=== PATIENT | female | born 1980 | race Caucasian/White ===

== ENCOUNTER 2018-03-05 13:08 | Emergency (ER) | payer BC, OTHER ==
[2018-03-05] MEDS ORDERED: NA CHLORIDE 0.9% 1,000 ML ONE (13:31)
[2018-03-05] MEDS ORDERED: ONDANSETRON 4 MG/2 ML VIAL ONE (13:56)
[2018-03-05 13:57] LABS: Absolute Lymphocytes (CBC) 0.6 K/uL (0.7-4.9); Absolute Monocytes 0.5 K/uL (0.1-1.3); Basophils % 0.2 % (0-1.3); Eosinophils % 0.2 % (0-4.4); Hematocrit 45.1 % (36.0-45.0); Lymphocytes % 4.5 % (15.3-44.8); MCH 29.7 pg (27.0-35.0); MCV 87.8 fL (80-100); MPV 8.1 fL (7.6-11.3); Monocytes % 3.3 % (3.3-12.3); RBC Red Blood Cell Count 5.13 M/uL (3.86-4.86)
[2018-03-05 14:03] LABS: Bilirubin Direct 0.1 mg/dL (0-0.2); Bilirubin Total 0.6 mg/dL (0.2-1.0); Potassium 3.6 mmol/L (3.5-5.1); Protein, Total 8.2 g/dL (6.4-8.2)
[2018-03-05 14:21] LABS: Urine Blood NEGATIVE (NEG); Urine Glucose NEGATIVE (NEG); Urine Protein NEGATIVE (NEG); Urine Specific Gravity 1.025 (1.005-1.030); Urine pH 5.5 (5.0-7.0)
[2018-03-05 14:26] LABS: Blood Morphology Comment NOT SEEN (NOT SEEN); Platelet Estimate ADEQ; Urine White Blood Cell Casts OK
--- NOTE | 2018-03-05 14:49 | RAD REPORT ---
EXAM DESCRIPTION: CT - Abdomen Pelvis W Contrast - 03/05/2018 2:28 pm CLINICAL HISTORY: Abdominal pain, nausea, vomiting and diarrhea COMPARISON: None. TECHNIQUE: Biphasic, helical CT imaging of the abdomen and pelvis was performed following 100 ml non -ionic IV contrast. Oral contrast was given. All CT scans are performed using dose optimization technique as appropriate and may include automated exposure control or mA/KV adjustment according to patient size. FINDINGS: No suspicious findings in the lung bases. The liver, spleen, and pancreas show no suspicious findings. Gallbladder and biliary tree are also wi thout suspicious finding. Symmetric renal function is seen with no hydronephrosis or suspicious renal mass. No gastric dilatation or wall thickening. Small bowel loops are not dilated. Multiple small bowel loo ps do show a mild prominence of the wall thickness. This is most likely a nonspecific enteritis. No a cute colon process. Appendicitis is not suspected. No free air, free fluid or inflammatory stranding . No hernia, mass or bulky lymphadenopathy. The urinary bladder is without significant finding. No a drenal abnormality. A 3.5 centimeter right ovarian cyst is present. No other ovarian or adnexal findi ng. No uterine abnormality. No suspicious bony findings. IMPRESSION: Nonspecific small bowel enteritis pattern.
--- NOTE | 2018-03-05 15:03 | EDPHYS ---
Physician Documentation [facility] Name: Glory Son Age: 37 yrs Sex: Female : 1980 Arrival Date: 03/05/2018 Time: 13:12 Bed 23 Private MD: Bret Newton ED Physician Willis Simno HPI: 03/05 13:28 This 37 yrs old Female presents to ER via Ambulatory with complaints of kb Nausea/Vomiting/Diarrhea. 13:28 The patient presents to the emergency department with nausea, diarrhea. Onset: The kb symptoms/episode began/occurred 2 day(s) ago. Possible causes: unknown. The symptoms are aggravated by nothing. The symptoms are alleviated by nothing. Associated signs and symptoms: Pertinent positives: diarrhea, nausea, vomiting. Severity of symptoms: At their worst the symptoms were moderate in the emergency department the symptoms are unchanged. The patient has not experienced similar symptoms in the past. The patient has not recently seen a physician. 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 - Social history:: Smoking status: Patient/guardian denies using tobacco. - Ebola Screening: : Patient negative for fever greater than or equal to 101.5 degrees Fahrenheit, and additional compatible Ebola Virus Disease symptoms Patient denies exposure to infectious person Patient denies travel to an Ebola-affected area in the 21 days before illness onset No symptoms or risks identified at this time. ROS: 13:27 Constitutional: Negative for fever, chills, and weight loss, Cardiovascular: Negative kb for chest pain, palpitations, and edema, Respiratory: Negative for shortness of breath, cough, wheezing, and pleuritic chest pain, Back: Negative for injury and pain, MS/Extremity: Negative for injury and deformity, Skin: Negative for injury, rash, and discoloration, Neuro: Negative for headache, weakness, numbness, tingling, and seizure. 13:27 Abdomen/GI: Positive for abdominal pain, nausea, diarrhea, Negative for vomiting. Exam: 13:27 Constitutional: This is a well developed, well nourished patient who is awake, alert, kb and in no acute distress. Head/Face: Normocephalic, atraumatic. Chest/axilla: Normal chest wall appearance and motion. Nontender with no deformity. No lesions are appreciated. Cardiovascular: Regular rate and rhythm with a normal S1 and S2. No gallops, murmurs, or rubs. Normal PMI, no JVD. No pulse deficits. Respiratory: Lungs have equal breath sounds bilaterally, clear to auscultation and percussion. No rales, rhonchi or wheezes noted. No increased work of breathing, no retractions or nasal flaring. Abdomen/GI: Soft, non-tender, with normal bowel sounds. No distension or tympany. No guarding or rebound. No evidence of tenderness throughout. Skin: Warm, dry with normal turgor. Normal color with no rashes, no lesions, and no evidence of cellulitis. MS/ Extremity: Pulses equal, no cyanosis. Neurovascular intact. Full, normal range of motion. Neuro: Awake and alert, GCS 15, oriented to person, place, time, and situation. Cranial nerves II-XII grossly intact. Motor strength 5/5 in all extremities. Sensory grossly intact. Cerebellar exam normal. Normal gait. Vital Signs: 13:19 BP 125 / 94; Pulse 119; Resp 19; Temp 98.4; Pulse Ox 99% on R/A; Weight 99.79 kg; aj Height 5 ft. 7 in. (170.18 cm); 13:25 BP 116 / 82 Supine; Pulse 119; Resp 18; Pulse Ox 97% on R/A; tl3 13:25 BP 127 / 83 Sitting; Pulse 120; Resp 20; Pulse Ox 97% on R/A; tl3 13:25 BP 117 / 85; Pulse 130; Resp 20; Pulse Ox 97% on R/A; tl3 14:41 BP 105 / 61; Pulse 103; Resp 18; Pulse Ox 98% on R/A; tl3 13:19 Body Mass Index 34.46 (99.79 kg, 170.18 cm) aj MDM: 13:21 Patient medically screened. nilay 13:28 Data reviewed: vital signs, nurses notes. Data interpreted: Pulse oximetry: on room air kb is 99 %. Interpretation: normal. 14:54 Counseling: I had a detailed discussion with the patient and/or guardian regarding: the kb historical points, exam findings, and any diagnostic results supporting the discharge/admit diagnosis, lab results, radiology results, the need for outpatient follow up, a family practitioner, a splitting machine feeder, to return to the emergency department if symptoms worsen or persist or if there are any questions or concerns that arise at home. 03/05 13:27 Order name: Amylase, Serum; Complete Time: 14:04 kb 03/05 13:27 Order name: Basic Metabolic Panel; Complete Time: 14:04 kb 03/05 13:27 Order name: CBC with Diff; Complete Time: 14:27 kb 03/05 13:27 Order name: Hepatic Function; Complete Time: 14:04 kb 03/05 13:27 Order name: Lipase; Complete Time: 14:04 kb 03/05 13:46 Order name: Urine Dipstick--Ancillary (enter results); Complete Time: 14:25 bd 03/05 13:27 Order name: Urine Test (obtain specimen); Complete Time: 13:50 kb 03/05 13:27 Order name: IV Saline Lock; Complete Time: 13:50 kb 03/05 13:27 Order name: Labs collected and sent; Complete Time: 13:51 kb 03/05 13:46 Order name: Urine --Ancillary (enter results); Complete Time: 14:25 bd 03/05 13:59 Order name: CBC Smear Scan; Complete Time: 14:27 EDMS 03/05 14:04 Order name: CT Abd/Pelvis - W/Contrast; Complete Time: 14:53 kb 03/05 13:27 Order name: Urine Dipstick-Ancillary (obtain specimen); Complete Time: 13:51 kb 03/05 13:27 Order name: Orthostatics; Complete Time: 13:50 kb Administered Medications: 13:50 Drug: NS 0.9% 1000 ml Route: IV; Rate: 1000 ml; Site: left antecubital; Delivery: tl3 Primary tubing; 15:06 Follow up: IV Status: Completed infusion; IV Intake: 1000ml tl3 13:55 Drug: Zofran 4 mg Route: IVP; Infused Over: 2 mins; Site: left antecubital; tl3 15:06 Follow up: Response: No adverse reaction tl3 Disposition: 03/06 09:13 Co-signature as Attending Physician, Willis Simon MD I agree with the assessment and nilay plan of care. Disposition: 03/05/18 15:02 Discharged to Home. Impression: Noninfective gastroenteritis and colitis, unspecified. - Condition is Stable. - Discharge Instructions: Food Choices to Help Relieve Diarrhea, Adult, Viral Gastroenteritis, Adult. - Prescriptions for Bentyl 20 mg Oral Tablet - take 1 tablet by ORAL route every 6 hours As needed; 20 tablet. Zofran 4 mg Oral Tablet - take 1 tablet by ORAL route every 6 hours As needed; 20 tablet. - Medication Reconciliation Form, Thank You Letter, Antibiotic Education, Prescription Opioid Use, Work release form form. - Follow up: Emergency Department; When: As needed; Reason: Worsening of condition. Follow up: Private Physician; When: 2 - 3 days; Reason: Recheck today's complaints, Continuance of care, Re-evaluation by your physician. Signatures: Dispatcher [employer] EDJumana Lynn, ECONOMICS LECTURER-C ECONOMICS LECTURER-Randi Ware, Willis Hernadez RN, MD MD cha Lowrey, Tammy, RN RN tl3 Corrections: (The following items were deleted from the chart) 03/05 15:17 15:02 03/05/2018 15:02 Discharged to Home. Impression: Noninfective gastroenteritis and tl3 colitis, unspecified. Condition is Stable. Forms are Medication Reconciliation Form, Thank You Letter, Antibiotic Education, Prescription Opioid Use. Follow up: Emergency Department; When: As needed; Reason: Worsening of condition. Follow up: Private Physician; When: 2 - 3 days; Reason: Recheck today's complaints, Continuance of care, Re-evaluation by your physician. kb
--- NOTE | 2018-03-05 15:03 | ER ---
Nurse's Notes [facility] Name: Glory Son Age: 37 yrs Sex: Female : 1980 Arrival Date: 03/05/2018 Time: 13:12 Bed 23 Private MD: Bret Newton Diagnosis: Noninfective gastroenteritis and colitis, unspecified Presentation: 03/05 13:17 Presenting complaint: Patient states: Diarrhea and nausea since yesterday. Transition aj of care: patient was not received from another setting of care. Onset of symptoms was March 04, 2018. Risk Assessment: Do you want to hurt yourself or someone else? Patient reports no desire to harm self or others. Initial Sepsis Screen: Does the patient meet any 2 criteria? HR > 90 bpm. No. Patient's initial sepsis screen is negative. Does the patient have a suspected source of infection? No. Patient's initial sepsis screen is negative. Care prior to arrival: None. 13:17 Method Of Arrival: Ambulatory aj 13:17 Acuity: MARQUITA 3 aj Triage Assessment: 13:19 General: Appears in no apparent distress. comfortable, Behavior is calm, cooperative, aj appropriate for age. Pain: Denies pain. Neuro: Level of Consciousness is awake, alert, obeys commands, Oriented to person, place, time, situation, Appropriate for age. Respiratory: Airway is patent Respiratory effort is even, unlabored, Respiratory pattern is regular, symmetrical. GI: Reports diarrhea, nausea, vomiting. Derm: Skin is intact, is healthy with good turgor, Skin is pink, warm \T\ dry. normal. 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 - Social history:: Smoking status: Patient/guardian denies using tobacco. - Ebola Screening: : Patient negative for fever greater than or equal to 101.5 degrees Fahrenheit, and additional compatible Ebola Virus Disease symptoms Patient denies exposure to infectious person Patient denies travel to an Ebola-affected area in the 21 days before illness onset No symptoms or risks identified at this time. Screenin:25 Abuse screen: Denies threats or abuse. Nutritional screening: No deficits noted. tl3 Tuberculosis screening: No symptoms or risk factors identified. Fall Risk None identified. Assessment: 13:25 General: Appears uncomfortable, well groomed, well developed, well nourished, Behavior tl3 is calm, cooperative, appropriate for age. Pain: Complains of pain in bilateral hips, abdominal cramping. Neuro: Level of Consciousness is awake, alert, obeys commands, Oriented to person, place, time, situation, Appropriate for age. Cardiovascular: Patient's skin is warm and dry. Respiratory: Airway is patent Respiratory effort is even, unlabored, Respiratory pattern is regular, symmetrical. GI: Abdomen is round Reports diarrhea, since in the last two days pt has had nausea and about 20 episodes of diarrhea. : Urine is clear. EENT: No signs and/or symptoms were reported regarding the EENT system. Derm: No signs and/or symptoms reported regarding the dermatologic system. Musculoskeletal: No signs and/or symptoms reported regarding the musculoskeletal system. Vital Signs: 13:19 BP 125 / 94; Pulse 119; Resp 19; Temp 98.4; Pulse Ox 99% on R/A; Weight 99.79 kg; aj Height 5 ft. 7 in. (170.18 cm); 13:25 BP 116 / 82 Supine; Pulse 119; Resp 18; Pulse Ox 97% on R/A; tl3 13:25 BP 127 / 83 Sitting; Pulse 120; Resp 20; Pulse Ox 97% on R/A; tl3 13:25 BP 117 / 85; Pulse 130; Resp 20; Pulse Ox 97% on R/A; tl3 14:41 BP 105 / 61; Pulse 103; Resp 18; Pulse Ox 98% on R/A; tl3 13:19 Body Mass Index 34.46 (99.79 kg, 170.18 cm) ED Course: 13:12 Patient arrived in ED. mr 13:12 Bret Newton MD is Private Physician. mr 13:17 Jumana Joiner FNP-C is [facility]. kb 13:17 Willis Smion MD is Attending Physician. kb 13:17 Triage completed. aj 13:19 Arm band placed on left wrist. Patient placed in an exam room. aj 13:25 Patient has correct armband on for positive identification. Bed in low position. Call tl3 light in reach. Side rails up X 1. Adult w/ patient. Pulse ox on. NIBP on. 13:25 No provider procedures requiring assistance completed. Initial lab(s) drawn, by nj, tl3 sent to lab. Urine collected: clean catch specimen, clear, Amount Voided: 20mL. Inserted saline lock: 20 gauge in left antecubital area, using aseptic technique. Blood collected. 13:45 Hazel Maddox, RN is Primary Nurse. tl3 13:55 Door closed. Noise minimized. Lights dimmed. Warm blanket given. Pillow given. tl3 14:[address] via wheelchair. tl3 14:28 CT Abd/Pelvis - W/Contrast In Process Unspecified. EDMS 14:28 CT completed. Patient tolerated procedure well. Patient moved back from CT. bq 15:17 IV discontinued, intact, bleeding controlled, No redness/swelling at site. Pressure tl3 dressing applied. Administered Medications: 13:50 Drug: NS 0.9% 1000 ml Route: IV; Rate: 1000 ml; Site: left antecubital; Delivery: tl3 Primary tubing; 15:06 Follow up: IV Status: Completed infusion; IV Intake: 1000ml tl3 13:55 Drug: Zofran 4 mg Route: IVP; Infused Over: 2 mins; Site: left antecubital; tl3 15:06 Follow up: Response: No adverse reaction tl3 Intake: 15:06 IV: 1000ml; Total: 1000ml. tl3 Outcome: 15:02 Discharge ordered by . kb 15:17 Discharged to home ambulatory. tl3 15:17 Condition: stable 15:17 Discharge instructions given to patient, Instructed on discharge instructions, follow up and referral plans. medication usage, Demonstrated understanding of instructions, follow-up care, medications, Prescriptions given X 2. 15:17 Patient left the ED. tl3 Signatures: Dispatcher [employer] EDMS Jumana Joiner FNP-C INTERN-Randi Ware RN RN aj Rivera, Maria mr Quilty, Verna bq Varsha, Hazel, RN RN tl3
== END 2018-03-05 15:17 | disposition home or self-care (01) ==
LOC: ER 13:08
DX: K52.9 Noninfective gastroenteritis and colitis, unspecified (principal); Z88.8 Allergy status to other drugs, medicaments and biological substances; Z91.040 Latex allergy status; J45.909 Unspecified asthma, uncomplicated
CPT/HCPCS: 36415; 74177; 80048; 80076; 81003; 81025; 82150; 83690; 85025; 96361; 96374; 99284; J2405; J7030; Q9967